=== PATIENT | female | born 1980 | race Caucasian/White ===

== ENCOUNTER 2018-10-22 19:23 | Emergency (ER) | payer OTHER ==
[~2018-10-22] VITALS: Ht 152.4 cm; Wt 45.4 kg
[~2018-10-22 19:23] MED LIST: ACETAMINOPHEN-1 EAC1 PO; HYDROXYZINE HCL25 M1 PO; NEURONTIN600 MG PO; PRAZOSIN HCL2 MG PO; PROZAC20 MG PO; REMERON15 MG PO; SEROQUEL 25 MG25 M1 PO; ZOFRAN ODT4 MG PO; ZPAK PO; [UNRECOGNIZED DRUG - OTHER]
[2018-10-22] MEDS ORDERED: PRELONE15 MG/5 ML PO (20:24)
[2018-10-22] MEDS ORDERED: ACETAMINOP160 MG/5 M PO (20:24)
[2018-10-22] MEDS ORDERED: IBUPROFEN100 MG/52 PO (20:24)
[2018-10-22 20:42] VITALS: BP 120/80
== END 2018-10-22 20:43 | disposition home or self-care (01) ==
LOC: M.ERS 19:23
DX: J04.0 Acute laryngitis (principal); G35 Multiple sclerosis; I10 Essential (primary) hypertension; F31.9 Bipolar disorder, unspecified; F17.210 Nicotine dependence, cigarettes, uncomplicated; Z88.0 Allergy status to penicillin; Z88.1 Allergy status to other antibiotic agents; Z88.8 Allergy status to other drugs, medicaments and biological substances